=== PATIENT | male | born 1985 | race African-American/Black ===

== ENCOUNTER 2019-07-26 05:41 | Emergency (ER) | payer SELFPAY ==
[2019-07-26] MEDS ORDERED: OLANZapine 10 MG Vial IM ONE (05:59)
--- NOTE | 2019-07-26 06:12 | EDM.PDOCBH ---
ED HPI GENERAL MEDICAL PROBLEM - General Stated Complaint: SICK Time Seen by Provider: 07/26/19 06:07 Source of Information: Reports: Patient History Limitations: Reports: No Limitations - History of Present Illness INITIAL COMMENTS - FREE TEXT/NARRATIVE: 33 yo [place] male from the residential,brought in by EMS ,complaining of tactile and visual hallucinations. Started about 5pm last evening. He reports feeling & seeing worms on his skin,beginning from the lower extremity.He is previously healthy and denies using any drugs.he endorses alcohol use previous to residential,every weekend.He denies any headache,auditory hallucinations,depression or anxiety. No fever or chills. Onset: Today, Sudden - Related Data Allergies Allergy/AdvReac Type Severity Reaction Status Date / Time No Known Allergies Allergy Verified 07/26/19 05:47 Home Meds: Home Meds QUEtiapine Fumarate [Seroquel] 25 mg PO BID #30 tablet 07/26/19 [Rx] ED ROS GENERAL - Review of Systems Review Of Systems: ROS reveals no pertinent complaints other than HPI. ED EXAM, BEHAVIORAL HEALTH - Physical Exam Exam: See Below Exam Limited By: Altered Mental Status General Appearance: Alert, Anxious. No: No Apparent Distress Ears: Normal External Exam Nose: Normal Inspection Throat/Mouth: Normal Inspection Head: Atraumatic Respiratory/Chest: No Respiratory Distress Cardiovascular: Normal Peripheral Pulses Neurological: Alert, Inattentive Psychiatric: Alert, Restless, Agitated, Inattentive, Visual Hallucinations, Paranoid Thoughts. No: Suicidal Plan Skin Exam: Warm COURSE, BEHAVIORAL HEALTH COMP - Course Vital Signs: Last Vital Signs Temp 97.9 F 07/26/19 07:10 Pulse 102 H 07/26/19 07:10 Resp 18 07/26/19 07:10 BP 152/92 H 07/26/19 07:10 Pulse Ox 100 07/26/19 07:10 Orders, Labs, Meds: Laboratory Tests 07/26/19 07/26/19 07/26/19 Range/Units 05:46 05:50 05:50 WBC 4.3 L (4.5-12.0) X10-3/uL RBC 4.39 (4.30-5.75) x10(6)uL Hgb 14.1 (13.5-17.8) g/dL Hct 41.8 (30.0-51.3) % MCV 95.3 (80-96) fL MCH 32.0 (27.7-33.6) pg MCHC 33.6 (32.2-35.4) g/dL RDW 11.7 (11.5-15.5) % Plt Count 252 (125-369) X10(3)uL MPV 7.8 (7.4-10.4) fL Add Manual Diff Yes Neutrophils % (Manual) 43 L (46-82) % Lymphocytes % (Manual) 44 H (13-37) % Monocytes % (Manual) 13 H (4-12) % Sodium 139 (135-145) mmol/L Potassium 3.6 (3.5-5.3) mmol/L Chloride 100 (100-110) mmol/L Carbon Dioxide 27 (21-32) mmol/L BUN 8 (7-18) mg/dL Creatinine 0.8 (0.70-1.30) mg/dL Est Cr Clr Drug Dosing TNP Estimated GFR (MDRD) > 60 (>60) BUN/Creatinine Ratio 10.0 (9-20) Glucose 110 (80-116) mg/dL Calcium 9.5 (8.6-10.2) mg/dL Total Bilirubin 0.7 (0.1-1.3) mg/dL AST 27 H (5-25) IU/L ALT 28 (12-36) U/L Alkaline Phosphatase 80 (56-112) IU/L Total Protein 8.6 H (6.0-8.0) g/dL Albumin 4.3 (3.5-5.2) g/dL Globulin 4.3 g/dL Albumin/Globulin Ratio 1.0 TSH, Ultra Sensitive (0.36-3.74) IU/mL Urine Opiates Screen Negative (NEGATIVE) Ur Oxycodone Screen Negative (NEGATIVE) Ur Propoxyphene Screen Negative (NEGATIVE) Ur Barbituates Screen Negative (NEGATIVE) Ur Tricyclics Screen Negative (NEGATIVE) Ur Phencyclidine Scrn Negative (NEGATIVE) Ur Amphetamine Screen Negative (NEGATIVE) Urine MDMA Screen Negative (NEGATIVE) U Benzodiazepines Scrn Negative (NEGATIVE) U Cocaine Metab Screen Negative (NEGATIVE) U Marijuana (THC) Screen Negative (NEGATIVE) Ethyl Alcohol (<0.03) % 07/26/19 07/26/19 Range/Units 05:50 05:50 WBC (4.5-12.0) X10-3/uL RBC (4.30-5.75) x10(6)uL Hgb (13.5-17.8) g/dL Hct (30.0-51.3) % MCV (80-96) fL MCH (27.7-33.6) pg MCHC (32.2-35.4) g/dL RDW (11.5-15.5) % Plt Count (125-369) X10(3)uL MPV (7.4-10.4) fL Add Manual Diff Neutrophils % (Manual) (46-82) % Lymphocytes % (Manual) (13-37) % Monocytes % (Manual) (4-12) % Sodium (135-145) mmol/L Potassium (3.5-5.3) mmol/L Chloride (100-110) mmol/L Carbon Dioxide (21-32) mmol/L BUN (7-18) mg/dL Creatinine (0.70-1.30) mg/dL Est Cr Clr Drug Dosing Estimated GFR (MDRD) (>60) BUN/Creatinine Ratio (9-20) Glucose (80-116) mg/dL Calcium (8.6-10.2) mg/dL Total Bilirubin (0.1-1.3) mg/dL AST (5-25) IU/L ALT (12-36) U/L Alkaline Phosphatase (56-112) IU/L Total Protein (6.0-8.0) g/dL Albumin (3.5-5.2) g/dL Globulin g/dL Albumin/Globulin Ratio TSH, Ultra Sensitive 3.07 (0.36-3.74) IU/mL Urine Opiates Screen (NEGATIVE) Ur Oxycodone Screen (NEGATIVE) Ur Propoxyphene Screen (NEGATIVE) Ur Barbituates Screen (NEGATIVE) Ur Tricyclics Screen (NEGATIVE) Ur Phencyclidine Scrn (NEGATIVE) Ur Amphetamine Screen (NEGATIVE) Urine MDMA Screen (NEGATIVE) U Benzodiazepines Scrn (NEGATIVE) U Cocaine Metab Screen (NEGATIVE) U Marijuana (THC) Screen (NEGATIVE) Ethyl Alcohol < 0.03 (<0.03) % Medications Discontinued Medications Generic Name Dose Route Start Last Admin Trade Name Freq PRN Reason Stop Dose Admin Olanzapine 10 mg 07/26/19 05:59 07/26/19 06:13 Zyprexa IM 07/26/19 06:00 10 mg ONETIME ONE Administration Departure - Departure Time of Disposition: 05:38 Disposition: Home, Self-Care 01 Condition: Good Clinical Impression: Hallucinations, Acute psychosis - Discharge Information Prescriptions: QUEtiapine Fumarate [Seroquel] 25 mg PO BID #30 tablet Instructions: Psychosis Referrals: PCP,None [Primary Care Provider] - 07/27/19 Forms: ED Department Discharge Additional Instructions: Return to ED with any worsening symptoms - Problem List & Annotations (1) Acute psychosis SNOMED Code(s): 37447900, 96249371 Code(s): F23 - BRIEF PSYCHOTIC DISORDER Status: Acute - Problem List Review Problem List Initiated/Reviewed/Updated: Yes - Assessment/Plan Plan: Obtain CMP,CBC,ETOH and Urine drug screen. Consult [facility]. Stat IV access,and give Zyprexa 10 mg IV. He does not seem in danger. I will send him back to residential,and with Seroquel 25 mg po bid.
== END 2019-07-26 07:22 | disposition home or self-care (01) ==
LOC: FB.ED 05:41
DX: F23 Brief psychotic disorder (principal)
CPT/HCPCS: 36415; 80053; 80305; 80320; 84443; 85025; 96372; 99284; S0166; 99283; G0480